=== PATIENT | female | born 1980 | race African-American/Black ===

== ENCOUNTER 2018-04-14 16:41 | Emergency (ER) | payer OTHER ==
[2018-04-14 16:51] VITALS: BP 166/93; PULSE 73; TEMP 98.4; BMI 37.1
[2018-04-14] MEDS ORDERED: DIPHTH,PERTUSS(ACELL),TET 0.5 ML DISP.SYRIN IM ONE (16:51)
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
[2018-04-14 17:36] LABS: BASO % 1.1 % (0-2.0); EOS % 2.1 % (0-4.5); HEMATOCRIT 38.4 % (32.4-45.2); HEMOGLOBIN 13.1 GM/dL (10.7-15.3); LYMPH % 39.3 % (8-40); MCH 29.5 pg (25.7-33.7); MCHC 34.2 g/dl (32.0-36.0); MEAN CELL VOLUME 86.3 fl (80-96); MEAN PLT VOLUME 10.6 fl (7.5-11.1); MONO % 8.3 % (3.8-10.2); NEUT % 49.2 % (42.8-82.8); PLATELET COUNT 169 K/MM3 (134-434); RBC 4.45 M/mm3 (3.60-5.2); RDW 13.5 % (11.6-15.6); WHITE BLOOD COUNT 5.1 K/mm3 (4.0-10.0)
[2018-04-14 17:59] LABS: ALBUMIN 4.1 g/dl (3.4-5.0); ALK PHOS 58 U/L (45-117); ANION GAP 10 (8-16); BILIRUBIN,TOTAL 0.5 mg/dL (0.2-1.0); BLOOD UREA NITROGEN 9 mg/dL (7-18); CALCIUM 8.8 mg/dL (8.5-10.1); CHLORIDE 105 mmol/L (98-107); CO2 26 mmol/L (21-32); CREATININE 0.9 mg/dL (0.55-1.02); GLUCOSE,RANDOM 86 mg/dL (74-106); POTASSIUM 3.5 mmol/L (3.5-5.1); SGOT/AST 20 U/L (15-37); SGPT/ALT 30 U/L (12-78); SODIUM 141 mmol/L (136-145); TOT PROT 7.7 g/dl (6.4-8.2)
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
[2018-04-14 18:23] LABS: PLATELET ESTIMATE ADEQUATE
[2018-04-16 06:41] LABS: HBsAG SCREEN Negative (Negative)
== END 2018-04-14 19:15 | disposition home or self-care (01) ==
LOC: JERFT 16:41
PROC: 3E0234Z Introduction of Serum, Toxoid and Vaccine into Muscle, Percutaneous Approach (ICD-10-PCS; principal; 2018-04-14)
DX: S61.451A Open bite of right hand, initial encounter (principal); S61.551A Open bite of right wrist, initial encounter; Y04.1XXA Assault by human bite, initial encounter; Y93.89 Activity, other specified; Y92.118 Other place in children's home and orphanage as the place of occurrence of the external cause; Y99.0 Civilian activity done for income or pay; Z20.5 Contact with and (suspected) exposure to viral hepatitis; Z77.21 Contact with and (suspected) exposure to potentially hazardous body fluids
CPT/HCPCS: 36415; 80053; 85025; 86317; 86706; 86803; 87340; 87389; 90715; 99281-25

== ENCOUNTER 2018-05-16 18:10 | Emergency (ER) | payer OTHER ==
--- NOTE | 2018-05-16 18:29 | PDOC ---
Rapid Medical Evaluation Chief Complaint: Injury Time Seen by Provider: 05/16/18 18:26 Medical Evaluation: Allergies Allergy/AdvReac Type Severity Reaction Status Date / Time sesame oil Allergy Mild Hives Verified 04/14/18 16:48 05/16/18 18:26 I have performed a brief in person evaluation of this patient. The patient presents with a CC of: Left knee pain HPI: Pt is a 37 YO female who states at the end of last month she injured her left knee on the job. Pt states she fell on her left knee. She was not evaluated at that time. PE: Skin: Clear Heart: RRR Lungs: Clear MS: Focused on the left knee. Pt can ambulate. Flex and extend without difficulty. Pt has pain upon palpation to the patella and lateral aspect. Neuro: Appropriate affect Psych: appropriate affect I have ordered: left knee xray The patient will proceed to [facility] for further evaluation. Discharge Disposition - Diagnosis Knee pain, left Qualifiers: Chronicity: unspecified Qualified Code(s): M25.562 - Pain in left knee - Referrals - Patient Instructions - Post Discharge Activity
[2018-05-16 19:07] VITALS: BP 171/96; PULSE 69; TEMP 98.9; BMI 35.5
[2018-05-16] MEDS ORDERED: IBUPROFEN 600 MG TABLET (FP) PO ONE ×2 (19:18→19:34)
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
== END 2018-05-16 20:11 | disposition home or self-care (01) ==
LOC: JERFT 18:10
PROC: 2W3RXYZ Immobilization of Left Lower Leg using Other Device (ICD-10-PCS; principal; 2018-05-16)
DX: S83.8X2A Sprain of other specified parts of left knee, initial encounter (principal); M25.462 Effusion, left knee; W18.39XA Other fall on same level, initial encounter; Y93.89 Activity, other specified; Y92.118 Other place in children's home and orphanage as the place of occurrence of the external cause; Y99.0 Civilian activity done for income or pay
CPT/HCPCS: 73560-TC-LT-FY; 99282-25

== ENCOUNTER 2018-06-23 05:09 | Day surgery (SDC) | payer OTHER ==
[2018-06-22 11:40] VITALS: BMI 36.3
--- NOTE | 2018-06-23 08:06 | HP ---
Satellite [facility] - Chief Complaint Chief Complaint: LEFT KNEE PAIN History Source: Patient - Past Medical History Allergies/Adverse Reactions: Allergies Allergy/AdvReac Type Severity Reaction Status Date / Time sesame oil Allergy Mild Hives Verified 06/23/18 07:55 ...LMP: 05/31/18 - Current Medications Current Medications: Home Medications Medication Instructions Recorded NK [No Known Home Medication] 06/22/18 Satellite Physical Exam - Physical Examination Vital Signs: Vital Signs Period Temp Pulse Resp BP Sys/Barlow Pulse Ox Last 24 Hr 98.2 F-98.2 F 81-81 20-20 137-137/94-94 100 Extremities: Other (+ LEFT KNEE JOINT LINE TENDERNESS) Satellite Impression/Plan - Impression/Plan Impression: INTERNAL DERANGEMENT LEFT KNEE Operative Procedure: ARTHROSCOPY LEFT KNEE Date to be Performed: 06/23/18
[2018-06-23] MEDS ORDERED: ACETAMINOPHEN 325 MG TABLET (FP) PO PRN (09:04)
[2018-06-23] MEDS ORDERED: ONDANSETRON 4 MG/2 ML VIAL IVPUSH PRN (09:04)
[2018-06-23] MEDS ORDERED: oxyCODONE HCL 5 MG TABLET PO PRN (09:04)
[2018-06-23] MEDS ORDERED: LACTATED RINGERS SOLUTION 1,000 ML IV SCH (09:15)
[2018-06-23] MEDS ORDERED: PROPOFOL 20 ML ONE ×2 (09:18→09:31)
[2018-06-23] MEDS ORDERED: DEXAMETHASONE SOD PHOSPHATE 4 MG/1 ML VIAL ONE (09:29)
[2018-06-23] MEDS ORDERED: BUPIVACAINE HCL/PF 0.5% (5MG/ML) 10 ML VIAL IJ ONE ×2 (09:30)
[2018-06-23] MEDS ORDERED: KETOROLAC TROMETHAMINE 30 MG/1 ML VIAL ONE (09:36)
--- NOTE | 2018-06-23 09:54 | OP ---
Operative Note - Note: Operative Date: 06/23/18 Pre-Operative Diagnosis: internal derangement left knee Operation: arthroscopy left knee with chondroplasty trochlea Post-Operative Diagnosis: Same as Pre-op Surgeon: Sekou Pappas Anesthesia: General Operative Report Dictated: Yes
[2018-06-23] MEDS ORDERED: ONDANSETRON 4 MG/2 ML VIAL ONE (10:10)
--- NOTE | 2018-06-23 10:55 | OP ---
DATE OF OPERATION: 06/23/2018 DATE OF DICTATION: 06/23/2018 PREOPERATIVE DIAGNOSIS: Internal derangement, left knee. POSTOPERATIVE DIAGNOSIS: Internal derangement, left knee. PROCEDURE: Arthroscopy left knee with chondroplasty of the trochlea. SURGEON: Sekou Pappas MD ANESTHESIA: General with LMA. CLOSURES: 4-0 nylon. COMPLICATIONS: None. CONDITION: To recovery room in stable condition. DESCRIPTION OF PROCEDURE: The patient was taken to the operating room on June 23, 2018. General anesthesia with LMA was administered by the anesthesiologist. Preoperative exam revealed the patient goes into significant recurvatum of approximately 10 degrees on both knees but, otherwise, is stable throughout. The left lower extremity was prepped and draped in the usual sterile fashion. The medial and lateral infrapatellar portal sites were infiltrated with 1% Xylocaine and with epinephrine. Both ports were then made with a 15 blade and blunt trocar. The scope was placed in the lateral infrapatellar port and up to the suprapatellar pouch. The knee was then inflated with a cocktail of 10 mL of 1% Xylocaine, 10 mL of 0.5% Marcaine, and 20 mL of arthroscopic saline. After allowing the anesthetic to work in the knee, the procedure was performed. The undersurface of the patella was found to be intact. The trochlea was found to have a central grade 4 lesion. Any loose articular cartilage in this region was debrided using a shaver. The medial and lateral gutters were visualized to be clean. With valgus stress on the knee, the medial meniscus was entered. Medial meniscus was visualized and probed and found to be intact. The medial femoral condyle was run and found to be intact as was the medial tibial plateau. At 90 degrees, the ACL was visualized and probed and found to be intact. In figure-4 position, the lateral compartment was entered. Lateral meniscus was visualized and probed and found to be intact. The lateral femoral condyle was run and found to be intact as was the lateral tibial plateau. The knee was irrigated with copious amounts of irrigation. The port was closed using 4-0 nylon. Prior to closure, 20 mL of 0.5% Marcaine was infused into the knee through the trocar once the fluid was drained from the knee. A sterile pressure dressing was applied followed by Moreland dressing. The patient was awakened from anesthesia and transferred to recovery in stable condition with no complications. Estimated blood loss negligible. Malu BARFIELD/[id number]
[2018-06-23 14:01] VITALS: BP 120/80; PULSE 78; TEMP 98
--- NOTE | 2018-06-26 17:43 | PATH ---
Surgical Pathology Report Patient Name: KOREY MCGOWAN [facility]. Rec. #: [id number] /Age/Gender: 1980 (Age: 37) / F Account: [id number] Location: [facility] SURGICAL Taken: 06/23/2018 Received: 06/23/2018 Reported: 06/26/2018 Physicians: Sekou Pappas M.D. Specimen(s) Received TISSUE OF LEFT KNEE Clinical History Left knee tear Final Diagnosis KNEE TISSUE, LEFT, ARTHROSCOPY: FRAGMENTS OF CARTILAGE, DENSE FIBROCONNECTIVE TISSUE, ADIPOSE TISSUE, SKELETAL MUSCLE, AND REACTIVE SYNOVIUM. Electronically Signed Cherie Lr M.D. Gross Description Received in formalin, labeled "left knee," is a 4.0 x 3.5 x 0.4 cm. aggregate of chávez-yellow soft tissue fragments. A call center support representative portion is submitted in one cassette. DL/06/23/2018 saudi06/23/2018
== END 2018-06-23 13:30 | disposition home or self-care (01) ==
LOC: JASU-SURG 05:09
PROVIDERS: ATTEND Orthopaedic Surgery
PROC: 0SBD4ZZ Excision of Left Knee Joint, Percutaneous Endoscopic Approach (ICD-10-PCS; principal; 2018-06-23 08:45)
DX: M23.8X2 Other internal derangements of left knee (principal)
CPT/HCPCS: 84703; 88304-TC; 94760

== ENCOUNTER 2022-12-09 13:47 | Emergency (ER) | payer OTHER ==
[2022-12-09 14:06] VITALS: RESP 20; TEMP 98; BMI 27.4
[2022-12-09] MEDS ORDERED: LORazepam 2 MG TABLET PO ONE (14:18)
[2022-12-09 15:41] LABS: BASO % 0.5 % (0-2.0); EOS % 0.6 % (0-4.5); HEMATOCRIT 35.5 % (32.4-45.2); HEMOGLOBIN 11.6 GM/dL (10.7-15.3); LYMPH % 21.4 % (8-40); MCHC 32.6 g/dl (32.0-36.0); MEAN CELL VOLUME 85.8 fl (80-96); MEAN PLT VOLUME 10.1 fl (7.5-11.1); MONO % 6.9 % (3.8-10.2); NEUT % 70.6 % (42.8-82.8); PLATELET COUNT 139 10^3/uL (134-434); RBC 4.14 M/mm3 (3.60-5.2); RDW 14.7 % (11.6-15.6); WHITE BLOOD COUNT 7.9 K/mm3 (4.0-10.0)
[2022-12-09 15:46] LABS: VENOUS BASE EXCESS -3.4 mmol/L (-2-2); VENOUS O2 SATURATION 57.2 % (70-80); VENOUS PCO2 38.3 mmHg (38-52); VENOUS PH 7.365 (7.310-7.410)
[2022-12-09 16:02] LABS: CHLORIDE 109 mmol/L (98-107); SODIUM 138 mmol/L (136-145)
[2022-12-09 16:05] LABS: CALCIUM 9.1 mg/dL (8.5-10.1)
[2022-12-09 16:06] LABS: ALBUMIN 3.9 g/dl (3.4-5.0); ANION GAP 5 MMOL/L (8-16); BLOOD UREA NITROGEN 11.3 mg/dL (7-18); CO2 23 mmol/L (21-32); GLUCOSE,RANDOM 90 mg/dL (74-106); MAGNESIUM 2.1 mg/dL (1.8-2.4)
[2022-12-09 16:08] LABS: CREATININE 0.9 mg/dL (0.55-1.3); PHOSPHOROUS 2.3 mg/dL (2.5-4.9); SGOT/AST 40 U/L (15-37); SGPT/ALT 42 U/L (13-61)
[2022-12-09 16:10] LABS: BILIRUBIN,TOTAL 0.4 mg/dL (0.2-1); TOT PROT 7.7 g/dl (6.4-8.2)
[2022-12-09 16:11] LABS: ALK PHOS 48 U/L (45-117)
[2022-12-09 16:29] VITALS: BP 153/80; PULSE 74
[2022-12-09 16:32] LABS: LACTIC ACID 2.6 mmol/L (0.4-2.0)
[2022-12-09] MEDS ORDERED: levETIRAcetam 500 MG/5 ML INJECTION VIAL IVPB ONE ×2 (16:39→16:43)
[2022-12-09] MEDS ORDERED: SODIUM CHLORIDE 0.9% 500 ML INFUS.BAG IV ONE (16:53)
[2022-12-09] MEDS ORDERED: KETOROLAC TROMETHAMINE 15 MG/ML VIAL IVPUSH ONE (16:59)
[2022-12-09] MEDS ORDERED: KETOROLAC TROMETHAMINE 15 MG/ML VIAL ONE (17:01)
[2022-12-09 17:13] LABS: EPI CELLS 18 /uL (0-25.1); HYALINE CASTS 1 /uL (0-3.1); URINE APPEARANCE CLEAR; URINE BACTERIA 129 /uL (0-1359); URINE BILIRUBIN NEGATIVE (NEGATIVE); URINE COLOR YELLOW; URINE GLUCOSE (UA) NEGATIVE (NEGATIVE); URINE KETONE NEGATIVE (NEGATIVE); URINE LEUK ESTERASE TRACE (NEGATIVE); URINE NITRITE NEGATIVE (NEGATIVE); URINE PROTEIN NEGATIVE (NEGATIVE); URINE RBC 5 /uL (0-23.9); URINE UROBILINOGEN 0.2 mg/dL (0.2-1.0); URINE WBC 32 /uL (0-25.8)
== END 2022-12-09 19:01 | disposition left against medical advice (07) ==
LOC: JER 13:47
PROC: 3E033GC Introduction of Other Therapeutic Substance into Peripheral Vein, Percutaneous Approach (ICD-10-PCS; principal; 2022-12-09)
DX: G40.909 Epilepsy, unspecified, not intractable, without status epilepticus (principal); M25.511 Pain in right shoulder
CPT/HCPCS: 36415; 70450-TC; 71045-TC-FY; 72125-TC; 73030-TC-RT-FY; 80053; 80307; 81003; 82803; 82962; 83605; 83735; 84100; 84703; 85025; 93005; 93010; 99285-25

== ENCOUNTER 2023-01-19 12:58 | Inpatient (IN) | payer OTHER, BC ==
[2023-01-19 13:12] VITALS: BMI 27.4
[2023-01-19] MEDS ORDERED: MIDAZOLAM HCL 5 MG/1 ML Single Dose Vial ONE (13:33)
[2023-01-19] MEDS ORDERED: HYDROmorphone HCl 2 MG/ML VIAL ONE ×2 (13:46→14:36)
[2023-01-19] MEDS ORDERED: HYDROmorphone HCl 2 MG/ML VIAL IVPUSH ONE ×2 (14:00→14:28)
[2023-01-19] MEDS ORDERED: levETIRAcetam 500 MG/5 ML INJECTION VIAL IVPB ONE ×3 (14:09→14:19)
[2023-01-19] MEDS ORDERED: ACETAMINOPHEN 1000 MG/100 ML BAG IVPB ONE (14:29)
[2023-01-19] MEDS ORDERED: ACETAMINOPHEN INJECTION 100 ML IVPB ONE (14:36)
[2023-01-19 15:40] LABS: BASO % 0.6 % (0-2.0); EOS % 0.6 % (0-4.5); HEMATOCRIT 34.7 % (32.4-45.2); HEMOGLOBIN 11.5 GM/dL (10.7-15.3); LYMPH % 18.2 % (8-40); MCH 28.1 pg (25.7-33.7); MCHC 33.2 g/dl (32.0-36.0); MEAN CELL VOLUME 84.5 fl (80-96); MEAN PLT VOLUME 10.4 fl (7.5-11.1); MONO % 4.4 % (3.8-10.2); NEUT % 76.2 % (42.8-82.8); PLATELET COUNT 167 10^3/uL (134-434); RDW 15.3 % (11.6-15.6); WHITE BLOOD COUNT 11.4 K/mm3 (4.0-10.0)
[2023-01-19 15:46] LABS: INR 1.05 (0.83-1.09); PROTHROMBIN TIME (PATIENT) 12.2 SEC (9.7-13.0)
[2023-01-19 15:49] LABS: ACTIVATED PTT 30.3 SECONDS (25.2-36.5)
[2023-01-19 15:57] LABS: POTASSIUM 3.3 mmol/L (3.5-5.1)
[2023-01-19 15:59] LABS: BLOOD UREA NITROGEN 12.3 mg/dL (7-18); CALCIUM 9.3 mg/dL (8.5-10.1); MAGNESIUM 1.9 mg/dL (1.8-2.4)
[2023-01-19] MEDS ORDERED: LIDOCAINE HCL 2% (50ML VIAL) SQ ONE (15:59)
[2023-01-19 16:02] LABS: CREATININE 0.9 mg/dL (0.55-1.3)
[2023-01-19 16:04] LABS: BILIRUBIN,TOTAL 0.3 mg/dL (0.2-1); TOT PROT 7.6 g/dl (6.4-8.2)
[2023-01-19] MEDS ORDERED: MIDAZOLAM HCL 5 MG/1 ML Single Dose Vial IVPUSH ONE (16:10)
[2023-01-19] MEDS ORDERED: LIDOCAINE HCL 2% (20ML MULTI-DOSE VIAL) ONE (16:16)
[2023-01-19] MEDS ORDERED: MIDAZOLAM HCL 2 MG/2 ML SINGLE DOSE VIAL ONE (16:25)
[2023-01-19] MEDS ORDERED: MIDAZOLAM HCL 2 MG/2 ML SINGLE DOSE VIAL IVPUSH ONE (16:56)
[2023-01-19] MEDS ORDERED: ACETAMINOPHEN 1000 MG/100 ML BAG IVPB PRN (17:54)
[2023-01-19] MEDS ORDERED: POTASSIUM CHLORIDE ORAL LIQUID 20 MEQ/15 ML PO ONE (18:11)
[2023-01-19] MEDS: amLODIPine BESYLATE 5 MG TABLET (FP) PO SCH (18:19)
[2023-01-19] MEDS: levETIRAcetam 500 MG/5 ML INJECTION VIAL IVPB SCH (21:52)
[2023-01-20 08:07] LABS: POTASSIUM 3.6 mmol/L (3.5-5.1)
[2023-01-20 08:18] LABS: BASO % 0.7 % (0-2.0); EOS % 0.4 % (0-4.5); HEMOGLOBIN 10.6 GM/dL (10.7-15.3); LYMPH % 22.6 % (8-40); MCHC 34.1 g/dl (32.0-36.0); MEAN CELL VOLUME 85.2 fl (80-96); MEAN PLT VOLUME 10.8 fl (7.5-11.1); MONO % 8.6 % (3.8-10.2); NEUT % 67.7 % (42.8-82.8); PLATELET COUNT 137 10^3/uL (134-434); RBC 3.64 M/mm3 (3.60-5.2); RDW 14.8 % (11.6-15.6); WHITE BLOOD COUNT 6.7 K/mm3 (4.0-10.0)
[2023-01-20 08:38] LABS: ALBUMIN 3.4 g/dl (3.4-5.0); BLOOD UREA NITROGEN 8.6 mg/dL (7-18)
[2023-01-20 08:39] LABS: CALCIUM 8.5 mg/dL (8.5-10.1); MAGNESIUM 1.9 mg/dL (1.8-2.4)
[2023-01-20 08:41] LABS: CREATININE 0.7 mg/dL (0.55-1.3); PHOSPHOROUS 3.1 mg/dL (2.5-4.9)
[2023-01-20 08:42] LABS: TOT PROT 6.6 g/dl (6.4-8.2)
[2023-01-20] MEDS: levETIRAcetam 500 MG/5 ML INJECTION VIAL IVPB SCH ×2 (09:30→21:48)
[2023-01-20] MEDS: amLODIPine BESYLATE 5 MG TABLET (FP) PO SCH (09:30)
[2023-01-20] MEDS ORDERED: DEXMEDETOMIDINE HCL 200 MCG/2 ML IVPB ONE (09:37)
[2023-01-20] MEDS ORDERED: ACETAMINOPHEN INJECTION 100 ML IVPB ONE (09:38)
[2023-01-20] MEDS ORDERED: ENOXAPARIN NA (PORCINE) 40 MG/0.4 ML DISP.SYRIN SQ SCH (10:00)
[2023-01-20] MEDS ORDERED: levETIRAcetam 500 MG/5 ML INJECTION VIAL IVPB SCH (10:28)
[2023-01-20] MEDS ORDERED: MIDAZOLAM HCL 2 MG/2 ML SINGLE DOSE VIAL ONE (10:49)
[2023-01-20] MEDS ORDERED: BUPIVACAINE HCL/PF 0.25% (2.5MG/ML) 10 ML VIAL ONE (10:51)
[2023-01-20] MEDS ORDERED: ceFAZolin SODIUM 1 GM VIAL IVPB ONE (12:14)
[2023-01-20] MEDS ORDERED: ACETAMINOPHEN 1000 MG/100 ML BAG IVPB PRN (14:25)
[2023-01-20] MEDS ORDERED: ceFAZolin SODIUM 1 GM VIAL ONE (21:49)
[2023-01-20] MEDS ORDERED: MELATONIN 5 MG TABLETS PO ONE (21:50)
[2023-01-20] MEDS: CEFAZOLIN 1 GM in DEXTROSE 5%-WATER - 50 ML IVPB SCH (21:51)
[2023-01-20] MEDS: ACETAMINOPHEN 1000 MG/100 ML BAG IVPB PRN (22:13)
[2023-01-21] MEDS ORDERED: ceFAZolin SODIUM 1 GM VIAL ONE (00:51)
[2023-01-21] MEDS: CEFAZOLIN 1 GM in DEXTROSE 5%-WATER - 50 ML IVPB SCH ×3 (01:00→17:07)
[2023-01-21] MEDS: ACETAMINOPHEN 1000 MG/100 ML BAG IVPB PRN (05:07)
[2023-01-21] MEDS: amLODIPine BESYLATE 5 MG TABLET (FP) PO SCH (09:35)
[2023-01-21] MEDS: POLYETHYLENE GLYCOL (HEALTHYLAX) 3350 17 GM PACKET PO SCH ×2 (09:35→09:49)
[2023-01-21] MEDS: levETIRAcetam 500 MG/5 ML INJECTION VIAL IVPB SCH ×2 (09:50→22:02)
[2023-01-21] MEDS ORDERED: POLYETHYLENE GLYCOL (HEALTHYLAX) 3350 17 GM PACKET PO SCH (10:00)
[2023-01-21] MEDS: ENOXAPARIN NA (PORCINE) 40 MG/0.4 ML DISP.SYRIN SQ SCH (13:50)
[2023-01-22] MEDS: levETIRAcetam 500 MG/5 ML INJECTION VIAL IVPB SCH ×2 (09:28→21:20)
[2023-01-22] MEDS: CELECOXIB 200 MG CAPSULE PO SCH (09:31)
[2023-01-22] MEDS: ENOXAPARIN NA (PORCINE) 40 MG/0.4 ML DISP.SYRIN SQ SCH (09:31)
[2023-01-22] MEDS: amLODIPine BESYLATE 5 MG TABLET (FP) PO SCH (09:32)
[2023-01-22] MEDS: POLYETHYLENE GLYCOL (HEALTHYLAX) 3350 17 GM PACKET PO SCH (10:15)
[2023-01-22 18:58] LABS: HIV INTERPRETATION NEGATIVE (NEGATIVE)
[2023-01-23] MEDS: levETIRAcetam 500 MG/5 ML INJECTION VIAL IVPB SCH ×2 (09:23→21:31)
[2023-01-23] MEDS: POLYETHYLENE GLYCOL (HEALTHYLAX) 3350 17 GM PACKET PO SCH (09:24)
[2023-01-23] MEDS: CELECOXIB 200 MG CAPSULE PO SCH (09:24)
[2023-01-23] MEDS: amLODIPine BESYLATE 5 MG TABLET (FP) PO SCH (09:25)
[2023-01-23] MEDS: ENOXAPARIN NA (PORCINE) 40 MG/0.4 ML DISP.SYRIN SQ SCH (09:25)
[2023-01-23 09:58] LABS: BASO % 0.8 % (0-2.0); EOS % 1.5 % (0-4.5); HEMATOCRIT 35.7 % (32.4-45.2); LYMPH % 30.6 % (8-40); MCH 28.9 pg (25.7-33.7); MCHC 33.8 g/dl (32.0-36.0); MEAN CELL VOLUME 85.5 fl (80-96); MEAN PLT VOLUME 11.3 fl (7.5-11.1); MONO % 10.1 % (3.8-10.2); PLATELET COUNT 155 10^3/uL (134-434); RBC 4.17 M/mm3 (3.60-5.2); RDW 14.9 % (11.6-15.6); WHITE BLOOD COUNT 6.9 K/mm3 (4.0-10.0)
[2023-01-23 10:15] LABS: CALCIUM 8.7 mg/dL (8.5-10.1)
[2023-01-23 10:16] LABS: BLOOD UREA NITROGEN 10.4 mg/dL (7-18)
[2023-01-23 10:19] LABS: CREATININE 0.7 mg/dL (0.55-1.3)
[2023-01-24] MEDS: amLODIPine BESYLATE 5 MG TABLET (FP) PO SCH ×2 (09:58→11:04)
[2023-01-24] MEDS: ENOXAPARIN NA (PORCINE) 40 MG/0.4 ML DISP.SYRIN SQ SCH ×2 (11:02→12:25)
[2023-01-24] MEDS: levETIRAcetam 500 MG/5 ML INJECTION VIAL IVPB SCH ×3 (11:04→21:30)
[2023-01-24] MEDS: CELECOXIB 200 MG CAPSULE PO SCH ×2 (11:04→12:25)
[2023-01-24] MEDS: POLYETHYLENE GLYCOL (HEALTHYLAX) 3350 17 GM PACKET PO SCH ×2 (11:05→12:24)
[2023-01-24 22:36] VITALS: RESP 18
[2023-01-25] MEDS ORDERED: levETIRAcetam 500 MG TABLET (FP) PO SCH (10:00)
[2023-01-25] MEDS: amLODIPine BESYLATE 5 MG TABLET (FP) PO SCH (10:12)
[2023-01-25] MEDS: ENOXAPARIN NA (PORCINE) 40 MG/0.4 ML DISP.SYRIN SQ SCH (10:12)
[2023-01-25] MEDS: CELECOXIB 200 MG CAPSULE PO SCH (10:12)
[2023-01-25] MEDS: POLYETHYLENE GLYCOL (HEALTHYLAX) 3350 17 GM PACKET PO SCH (10:12)
[2023-01-25 10:48] LABS: HEMATOCRIT 34.3 % (32.4-45.2); HEMOGLOBIN 11.5 GM/dL (10.7-15.3); MCH 28.9 pg (25.7-33.7); MCHC 33.5 g/dl (32.0-36.0); MEAN CELL VOLUME 86.1 fl (80-96); MEAN PLT VOLUME 10.7 fl (7.5-11.1); PLATELET COUNT 178 10^3/uL (134-434); RBC 3.99 M/mm3 (3.60-5.2); RDW 14.9 % (11.6-15.6); WHITE BLOOD COUNT 5.8 K/mm3 (4.0-10.0)
[2023-01-25 11:06] LABS: ALBUMIN 3.4 g/dl (3.4-5.0); CALCIUM 9.2 mg/dL (8.5-10.1)
[2023-01-25 11:07] LABS: BLOOD UREA NITROGEN 12.8 mg/dL (7-18)
[2023-01-25 11:10] LABS: CREATININE 0.6 mg/dL (0.55-1.3)
[2023-01-25 11:12] LABS: BILIRUBIN,TOTAL 0.6 mg/dL (0.2-1); TOT PROT 7.4 g/dl (6.4-8.2)
[2023-01-25] MEDS ORDERED: ACETAMINOPHEN 500 MG TABLET (FP) PO ONE ×2 (14:06→15:42)
[2023-01-25 14:20] VITALS: BP 120/73; PULSE 76; TEMP 98.2
[2023-01-25] MEDS ORDERED: ACETAMINOPHEN 1000 MG/100 ML BAG IVPB ONE (14:23)
== END 2023-01-25 18:50 | disposition home or self-care (01) | DRG 313 ==
LOC: JER 12:58 → JERBED 16:14 → J6S 18:00
PROVIDERS: ADMIT Internal Medicine; ATTEND Internal Medicine
PROC: 0SSF04Z Reposition Right Ankle Joint with Internal Fixation Device, Open Approach (ICD-10-PCS; principal; 2023-01-20 11:00)
DX: S82.841A Displaced bimalleolar fracture of right lower leg, initial encounter for closed fracture (principal); G40.909 Epilepsy, unspecified, not intractable, without status epilepticus; I10 Essential (primary) hypertension; E87.6 Hypokalemia; T14.90XA Injury, unspecified, initial encounter; X58.XXXA Exposure to other specified factors, initial encounter; Y93.89 Activity, other specified; Y92.89 Other specified places as the place of occurrence of the external cause; Y99.9 Unspecified external cause status
CPT/HCPCS: 36415; 71045-TC-FY; 73030-TC-RT-FY; 73560-TC-RT-FY; 73590-TC-RT-FY; 73610-TC-RT-FY; 73630-TC-RT-FY; 76000-TC-FY; 80048; 80053; 83735; 84100; 84703; 85025; 85027; 85610; 85730; 86850; 86900; 86901; 87389; 93005; 93010; 94760; 97116-GP; 97162-GP; 99285-25; C1713; C9803-CS; U0003; U0005